=== PATIENT | male | born 1945 | race Caucasian/White ===

== ENCOUNTER 2018-08-15 17:29 | Emergency (ER) | payer MEDICARE ==
[~2018-08-15] VITALS: Ht 172.7 cm; Wt 74.1 kg
[~2018-08-15 17:29] MED LIST: 00186-0370-20 IH; ASPIRIN E.C. 8181 MG PO; BOOST PLUS 240240 ML PO; CELEXA40 MG PO; COMBIRESP IH; DESYREL 100MG100 MG PO; EVZIO0.4 MG/0.4 IJ; MULTI VITAMINS1 TAB PO; NEURONTIN300 MG/CAP PO; NICODERM C14 MG/PATC TOP; NORVASC 10MG10 MG PO; OYSCO 500500 M1 PO; PERCOCET 325 MG1 TA2 PO; PLAVIX 75MG TAB75 MG PO; PRIL40 PO; PRINIVIL40 MG PO; PROTONIX 40MG T40 MG PO; THIAMINE 1100 MG/TAB PO; TOPROL XL 50MG50 MG PO; UNABLE; XANAX 1MG1 MG PO; ZANTAC 150150 MG
[2018-08-15 17:35] VITALS: TEMP 97.1
[2018-08-15 17:55] LABS: BASO % 0.3 % (0.0-2.0); EOS # 0.1 (0.0-0.7); EOS % 0.6 % (0-4.0); GRAN # 9.2 (1.4-6.5); HEMATOCRIT 40.1 % (42.0-52.0); HEMOGLOBIN 13.6 g/dl (13.5-18.0); LYMPH # 1.5 (1.2-3.4); LYMPH % 12.5 % (20.0-51.0); MEAN CELL VOLUME 93 fl (80.0-100.0); MEAN CORPUSCULAR HEMOGLOBIN 32 pg (27.0-31.0); MEAN CORPUSCULAR HGB CONC 34 g/dl (33.0-37.0); MEAN PLATELET VOLUME 9.5 fl (7.4-10.4); MONO # 0.7 (0.1-0.6); MONO % 6.1 % (1.7-9.3); PLATELET COUNT 337 K/mm3 (130-400); REDCELL DISTRIBUTION WIDTH-CV 13.2 % (11.5-14.5)
[2018-08-15 18:00] LABS: INR 1.1 (0.8-3.0); PROTHROMBIN TIME 12.4 SECONDS (9.7-12.8)
[2018-08-15 18:09] LABS: ARTERIAL BLD GAS O2 SATURATION 93.4 % (92-100); ARTERIAL BLD GAS TCO2 CT 25.1; ARTERIAL BLOOD GAS BASE EXCESS 0.4 (-2-2); ARTERIAL BLOOD GAS PCO2 35.5 mmHg (35-45); ARTERIAL BLOOD GAS PO2 69.2 mmHg (80-100); ARTERIAL BLOOD GAS pH 7.45 (7.35-7.45)
[2018-08-15 18:12] LABS: ALANINE AMINOTRANSFERASE 24 U/L (21-72); ALBUMIN 4.2 gm/dL (3.5-5.0); ALKALINE PHOSPHATASE 89 U/L (50-136); ANION GAP 11 mmol/L (7-16); AST,SGOT 29 U/L (15-37); BILIRUBIN,TOTAL 0.3 mg/dL (0.0-1.0); BLOOD UREA NITROGEN 11 mg/dL (9-20); CALCIUM 9.7 mg/dL (8.4-10.2); CARBON DIOXIDE 23 mmol/L (22-30); CHLORIDE 103 mmol/L (98-107); CREATINE KINASE 37 U/L (55-170); CREATININE, serum 0.87 mg/dL (0.66-1.25); GLUCOSE 129 mg/dL (74-106); POTASSIUM 3.5 mmol/L (3.4-5.0); SODIUM 137 mmol/L (137-145)
[2018-08-15 18:22] LABS: TROPONIN-I < 0.012 ng/mL (0.000-0.035)
[2018-08-15] MEDS ORDERED: PREDNISONE20 MG PO (19:20)
[2018-08-15] MEDS ORDERED: DOXYCYCLINE 10100 MG PO (19:20)
[2018-08-15 20:25] VITALS: BP 140/82; PULSE 88
== END 2018-08-15 20:26 | disposition home or self-care (01) ==
LOC: COL.ER 17:29
PROVIDERS: Emergency Medicine
DX: J44.1 Chronic obstructive pulmonary disease with (acute) exacerbation (principal); J20.1 Acute bronchitis due to Hemophilus influenzae; I10 Essential (primary) hypertension; K21.9 Gastro-esophageal reflux disease without esophagitis; F43.10 Post-traumatic stress disorder, unspecified; I48.91 Unspecified atrial fibrillation; Z79.82 Long term (current) use of aspirin
CPT/HCPCS: J7030; J7512

== ENCOUNTER 2018-09-30 05:55 | Day surgery (SDC) | payer OTHER, MEDICARE ==
[~2018-09-30] VITALS: Ht 172.7 cm; Wt 70.9 kg
[~2018-09-30 05:55] MED LIST changes: +DOXYCYCLINE 10100 MG PO; +PREDNISONE20 MG PO
[2018-09-30] MEDS ORDERED: PROTONIX 40MG T40 MG PO (06:26)
[2018-09-30] MEDS ORDERED: MOBIC 7.5MG7.5 MG PO (06:27)
[2018-09-30] MEDS ORDERED: PRINIVIL10 MG PO (06:28)
[2018-09-30] MEDS ORDERED: SINEQUAN 2525 MG/CAP PO ×2 (06:29→06:31)
[2018-09-30] MEDS ORDERED: REMERON30 MG PO (06:29)
[2018-09-30] MEDS ORDERED: DESYREL 50MG50 MG PO (06:30)
[2018-09-30] MEDS ORDERED: ATIVAN 0.50.5 MG/TAB PO (06:30)
[2018-09-30] MEDS ORDERED: NORVASC 10MG10 MG PO (06:31)
[2018-09-30] MEDS ORDERED: NEURONTIN300 MG/CAP PO (06:31)
[2018-09-30 06:34] VITALS: BP 114/76; PULSE 75; TEMP 97.5
[2018-09-30 07:30] VITALS: BP 130/77; PULSE 76; TEMP 98.1
[2018-09-30 07:45] VITALS: BP 136/105; PULSE 75
--- NOTE | 2018-09-30 07:48 | NUR ---
PATIENT ARRIVES FROM OR. GIVEN MUFFIN, JUICE AND COFFEE. POST OP VITAL SIGNS TAKEN. CALL LIGHT IN REACH. DAUGHTER AT BEDSIDE. WILL CONTINUE TO MONITOR.
--- NOTE | 2018-09-30 07:50 | NUR ---
PATIENT TOLERATED FOOD AND DRINK. VS CONTINUE. ALERT AND ORIENTED X 4. LUNGS CLEAR BILATERALLY. RESPIRATIONS EVEN AND UNLABORED. BOWELS SOUNDS FAINT ALL QUADRANTS. DENIES NAUSEA OR PAIN. CALL LIGHT IN REACH. WILL CONTINUE TO MONITOR.
[2018-09-30 08:00] VITALS: BP 141/73; PULSE 78
--- NOTE | 2018-09-30 08:19 | NUR ---
VS STABLE. REQUESTED MORE COFFEE. DAUGHTER REMAINS AT BEDSIDE. WILL CONTINUE TO MONITOR.
--- NOTE | 2018-09-30 09:02 | NUR ---
PATIENT DISCHARGED TO HOME AMBULATORY VIA WHEELCHAIR TO PERSONAL VEHICHLE. DISCHARGE INSTRUCTIONS GIVEN TO PATIENT AND DAUGHTER, BOTH VERBALIZED UNDERSTANDING.
== END 2018-09-30 08:35 | disposition home or self-care (01) ==
LOC: SDCO 05:55
DX: Z12.11 Encounter for screening for malignant neoplasm of colon (principal); K57.30 Diverticulosis of large intestine without perforation or abscess without bleeding; K21.9 Gastro-esophageal reflux disease without esophagitis; E78.00 Pure hypercholesterolemia, unspecified; K22.2 Esophageal obstruction; J43.9 Emphysema, unspecified; B19.20 Unspecified viral hepatitis C without hepatic coma; I10 Essential (primary) hypertension; Z79.82 Long term (current) use of aspirin; Z85.05 Personal history of malignant neoplasm of liver; Z83.79 Family history of other diseases of the digestive system; Z87.891 Personal history of nicotine dependence
CPT/HCPCS: 43235; G0121; J2704; J3010; J7030

== ENCOUNTER 2021-12-27 13:53 | Emergency (ER) | payer OTHER, MEDICARE ==
[~2021-12-27] VITALS: Ht 172.7 cm; Wt 73.2 kg
[~2021-12-27 13:53] MED LIST changes: +ATIVAN 0.50.5 MG/TAB PO; +DESYREL 50MG50 MG PO; +MOBIC 7.5MG7.5 MG PO; +PRINIVIL10 MG PO; +REMERON30 MG PO; +SINEQUAN 2525 MG/CAP PO
[2021-12-27 15:16] VITALS: TEMP 100.9
[2021-12-27 15:51] VITALS: BP 140/75; PULSE 77
== END 2021-12-27 16:00 | disposition home or self-care (01) ==
LOC: COL.ER 13:53
DX: U07.1 COVID-19 (principal); J43.9 Emphysema, unspecified; Z99.81 Dependence on supplemental oxygen
CPT/HCPCS: J7030; Q0222

== ENCOUNTER 2022-03-14 14:17 | Emergency (ER) | payer OTHER, MEDICARE ==
[~2022-03-14] VITALS: Ht 172.7 cm; Wt 71.8 kg
[2022-03-14 14:22] VITALS: TEMP 98.3
[2022-03-14 15:07] LABS: STREP SCREEN NEGATIVE
[2022-03-14] MEDS ORDERED: PREDNISONE20 MG PO (15:12)
[2022-03-14] MEDS ORDERED: ZITHROMAX Z PA250 MG PO (15:12)
[2022-03-14 15:38] VITALS: BP 140/76; PULSE 93
== END 2022-03-14 15:48 | disposition home or self-care (01) ==
LOC: COL.ER 14:17
PROVIDERS: Emergency Medicine
DX: J44.1 Chronic obstructive pulmonary disease with (acute) exacerbation (principal); Z20.822 Contact with and (suspected) exposure to COVID-19
CPT/HCPCS: J7512

== ENCOUNTER → 2022-04-22 | Outpatient (CLI) | payer OTHER, MEDICARE ==
[~2022-04-22] MED LIST changes: +ASPIRIN 81M81 MG/TA2 PO; +ELIQUIS 5MG PO; +IPRATROPIUM BROM3 M1 IH; +LASIX 40MG TABL40 MG PO; +LOPRESSOR 225 MG/TAB PO; +OMNICEF 300MG300 MG PO; +PROAIR HFA0.09 MG/AC IH; +SINEQUAN 5050 MG/CAP PO; +ZITHROMAX Z PA250 MG PO
[2022-04-22 15:46] LABS: CREATININE, serum 1.16 mg/dL (0.72-1.25); MAGNESIUM 1.8 mg/dL (1.6-2.6)
== END ==
LOC: COL.LAB 14:59
PROVIDERS: Internal Medicine
DX: I48.91 Unspecified atrial fibrillation (principal)